=== PATIENT | female | born 1955 | race Caucasian/White ===

== ENCOUNTER 2016-08-11 09:43 | Inpatient (IN) ==
--- NOTE | 2016-08-11 11:24 | Anesthesia Evaluation PreOp ---
Date of Encounter: 08/11/16 Time of Encounter: 11:22 - Past History Planned Operation: cscope Cardiac History: Denies any Significant Hx Pulmonary History: Asthma (very mild) BACK LINE COOK History: Denies Any Significant HX Other Medical History: Thyroid, GERD (controlled) Anesthesia History: No Prior Anesthetic Complications, Past Anesthesia (btl, lap appy, r ctr, r hand) Alcohol Use: none Drug use: none Medications and Allergies Bisoprolol/HCTZ 2.5/6.25 [Ziac 2.5/6.25] 1 tab PO DAILY 02/20/16 [History] Cyanocobalamin (Vitamin B-12) [Vitamin B-12] 1,000 mcg SL DAILY 02/20/16 [ History] Esomeprazole Magnesium [Nexium] 40 mg PO DAILY PRN 02/20/16 [History] LORazepam [Lorazepam] 1 mg PO HS PRN 02/20/16 [History] Levothyroxine [Synthroid] 75 mcg PO 0630 02/20/16 [History] Zolpidem [Ambien] 10 mg PO HS 02/20/16 [History] Sucralfate [Carafate] 1 gm PO BID 04/28/16 [History] Cholecalciferol (D-3) [Vitamin D] 2,000 unit PO DAILY 08/11/16 [History] Allergies No Known Allergies Allergy (Verified 08/11/16 11:18) - Meds/Allergy Pre-op Review Medications Reviewed: Yes Allergies Reviewed: Yes Beta Blockers on Current Med List: Yes If Beta Blockers taken, Date/Time (Last Dose taken): bisoprolol at 1400 on 08/10 Anesthesia Exam O2 Sat Height 1.55 m Height 1.55 m Weight 73.482 kg Weight 73.482 kg O2 Sat by Pulse Oximetry 95 O2 Sat by Pulse Oximetry 95 Vital Signs Temp Pulse Resp BP Pulse Ox 98.2 F 62 16 147/81 95 08/11/16 11:07 08/11/16 11:07 08/11/16 11:07 08/11/16 11:07 08/11/16 11:07 Height: 1.55 Weight: 73 NPO (# of Hours): >8 - HEENT Pupil (Motor): Pupils equal, EOMI Mallampati: I Teeth: Edentulous Denture Type: Upper: Complete, Lower: Complete Oral Opening: Greater than 3 - BACK LINE COOK LOC: Oriented BACK LINE COOK Motor: Normal RUE, Normal LUE, Normal RLE, Normal LLE, Normal Face BACK LINE COOK Sensory: Normal: RUE, LUE, RLE, LLE, Face - Cardiac Rhythm: Regular Murmur: None - Pulmonary Breath Sounds: bilateral Clear Respiratory Effort: Symmetrical Anesthesia Assess/Plan ASA Score: 2 Modified Eveline Scale for Level of Consciousness: Cooperative, oriented, and tranquil Anesthetic Plan: MAC Monitoring Plan: Standard Monitors Recovery Plan: Other
[2016-08-11] MEDS ORDERED: 0.9 % Sodium Chloride 1,000 ML IVC SCH ×2 (11:30)
[2016-08-11] MEDS ORDERED: Ondansetron 4 MG/2 ML VIAL IVP PRN ×2 (12:25→14:15)
[2016-08-11] MEDS ORDERED: Ondansetron 4 MG/2 ML VIAL ONE (12:28)
[2016-08-11] MEDS ORDERED: *HR* Morphine 2 MG/ML SYRINGE IVP ONE (12:34)
[2016-08-11] MEDS ORDERED: *HR* Morphine 2 MG/ML SYRINGE ONE (12:39)
[2016-08-11] MEDS ORDERED: *HR* HYDROmorphone (PF) 1 MG/ML SYRINGE IVP PRN (14:15)
[2016-08-11] MEDS ORDERED: Naloxone 0.4 MG/ML INJ IVP PRN (14:16)
[2016-08-11] MEDS: Piperacillin/Tazobactam 3.375 GM in D5% in Water (Mini-Bag+) 100 ML IVPB SCH ×2 (14:25→17:55)
--- NOTE | 2016-08-11 14:29 | General Surg History&Physical ---
Date of Encounter: 08/11/16 Time of Encounter: 14:00 Assessment and Plan (1) Perforation of colon Current Visit: Yes Status: Acute The assessment and plan as outlined above was discussed with the patient and/or family members who expressed understanding and agreement. All questions were answered. Discussed CT findings with Dr. Vieyra and Dr. Abbott Plan for conservative therapy at this time including: Bowel rest IV antibiotics- first dose infusing (Zosyn) IV fluids Supportive care/pain control Serial abdominal exams am labs (2) Hypertension Current Visit: Yes Status: Chronic The assessment and plan as outlined above was discussed with the patient and/or family members who expressed understanding and agreement. All questions were answered. Will order Metoprolol IV Monitor and adjust regimen as necessary Qualifiers: Hypertension type: essential hypertension Qualified Code(s): I10 - Essential (primary) hypertension (3) Hypothyroidism Current Visit: Yes Status: Chronic The assessment and plan as outlined above was discussed with the patient and/or family members who expressed understanding and agreement. All questions were answered. Levothyroxine IV Qualifiers: Hypothyroidism type: unspecified Qualified Code(s): E03.9 - Hypothyroidism , unspecified (4) DVT prophylaxis Current Visit: Yes Status: Acute The assessment and plan as outlined above was discussed with the patient and/or family members who expressed understanding and agreement. All questions were answered. Heparin 5,000 units SQ twice daily for DVT prophylaxis History of Present Illness Chief complaint: Intra-abdominal free air after colonoscopy HPI: Ms. Marcus is a 61 year old female who is s/p colonoscopy today with Dr. Abbott. She had persistent abdominal pain and bloating after her scope. KUB showed evidence of intra-abdominal free air. She was sent for CT of abdominan/pelvis with rectal contrast. CT shows evidence of extravasation of contrast in the distal sigmoid colon with a 2mm defect. The patient is lethargic due to sedation in endoscopy. She does complain of generalized abdominal pain and bloating. Also complaints of nausea. Past Med Surg Social Fam HX - Past Medical History Source: old records reviewed Medical history: arthritis, asthma, GERD, hypertension, thyroid disease, other ( irregular heartbeat) Psychiatric history: anxiety - Past Surgical History Surgical History: appendectomy, orthopedic, other (2 ruptured discs removed and plat placed; right CTR; right hand ring and middle figer for trigger finger), other (tubal ligation; EGD 2015; Colonoscopy 08/11/16) - Social History Smoking Status: Never smoker Smokeless Tobacco Status: No Alcohol use: none Drug use: none Current living situation: Home - Independent Activity Level: Independent ambulation - Family History Brother Living Status: Still Living Hx Family Cancer: Yes (prostate) Hx Family Endocrine Disorder: Yes (diabetes mellitus) Mother Living Status: Hx Family Cardiac Disorders: Yes Hx Family Endocrine Disorder: Yes (diabetes mellitus) Father Living Status: Hx Family Neurologic Disorders: Yes (CVA) Sister Living Status: Hx Family Cardiac Disorders: Yes (HTN, heart disease) Hx Family Cancer: Yes (uterine cancer) Hx Family Endocrine Disorder: Yes (diabetes mellitus) Hx Family Neurologic Disorders: Yes (CVA) Medications and Allergies Bisoprolol/HCTZ 2.5/6.25 [Ziac 2.5/6.25] 1 tab PO DAILY 02/20/16 [History] Cyanocobalamin (Vitamin B-12) [Vitamin B-12] 1,000 mcg SL DAILY 02/20/16 [ History] Esomeprazole Magnesium [Nexium] 40 mg PO DAILY PRN 02/20/16 [History] LORazepam [Lorazepam] 1 mg PO TID PRN 02/20/16 [History] Cholecalciferol (D-3) [Vitamin D] 2,000 unit PO DAILY 08/11/16 [History] Escitalopram [Lexapro] 20 mg PO DAILY 08/11/16 [History] Levothyroxine [Synthroid] 25 mcg PO 0630 08/11/16 [History] Zolpidem Tartrate [Ambien Cr] 12.5 mg PO HS 08/11/16 [History] Allergies No Known Allergies Allergy (Verified 08/11/16 11:18) Review of Systems ROS unobtainable: other (patient lethargic from anesthesia given for colonoscopy ) All systems PM: A 10-system review of systems was performed and is negative for pertinent findings except as documented above in the HPI. General Surgery Exam Initial Vital Signs Temp Pulse Resp BP Pulse Ox 98.2 F 62 16 147/81 95 08/11/16 11:07 08/11/16 11:07 08/11/16 11:07 08/11/16 11:07 08/11/16 11:07 - General physical appearance well developed, well nourished, moderate distress, moderate pain - Eyes normal ocular movement - ENT normal mucosa, atraumatic, normocephalic - Neck trachea midline - Respiratory normal respiratory effort, clear to auscultation, other (diminished bibasilar bases) - Cardiovascular Cardiovascular exam: Present: RRR, 15, 16 - Abdomen Abdomen general surgery: Present: soft, distended, tender Abdominal Tenderness: Present: diffusely - Integumentary Integumentary general surgery: Present: warm and dry - Neurologic Present: CN 2-12 grossly intact - Psychiatric Psychiatric general surgery: Present: oriented to person, oriented to place Results - Labs All other labs normal. - Imaging CT scan - abdomen: report reviewed CT scan - pelvis: report reviewed (Reviewed with radiologist) Additional studies: Abdomen/Pelvis CT 08/11/16 00:00 IMPRESSION: In the distal sigmoid colon along the anterior wall approximately 15 cm to the level of the anus there is a 2 mm diameter full-thickness perforation. Free intraperitoneal air and spill of rectal contrast. No significant hematoma. Results were discussed with Dr. Abbott on 08/11/2016 at 2:14 p.m. D/ / David Vieyra MD / David Vieyra MD Interpreting Provider: David Vieyra MD KUB X-Ray 08/11/16 13:05 IMPRESSION: Moderate pneumoperitoneum. Dr. Abbott was already aware of the results at the time of communication by Dr. Heather Mcneil MD on 08/11/2016 at 13:16. D/ / Heather Mcneil MD / Heather Mcneil MD Interpreting Provider: Heather Mcneil MD - Attending Attestation I examined this patient and my medical decision-making was reviewed with the BEAUTY SCHOOL INSTRUCTOR/PA/Advanced Practice Nurse/Resident Physician. I agree with the documented findings, disposition and treatment plan as described except to the extent set forth below.
[2016-08-11] MEDS: Acetaminophen IV 1,000 MG/100 ML INFUS..BTL IVPB SCH ×2 (14:58→21:28)
[2016-08-11] MEDS ORDERED: *HR* HYDROmorphone 20 MG/20 ML PCA IVC PRN (15:19)
[2016-08-11] MEDS: *HR* Heparin 5,000 UNIT/ML VIAL SQ SCH (17:52)
[2016-08-11] MEDS: *HR* Metoprolol 5 MG/5 ML VIAL IVP SCH (17:52)
[2016-08-12] MEDS: *HR* Metoprolol 5 MG/5 ML VIAL IVP SCH ×4 (00:10→18:18)
[2016-08-12] MEDS: Piperacillin/Tazobactam 3.375 GM in D5% in Water (Mini-Bag+) 100 ML IVPB SCH ×3 (00:10→16:45)
[2016-08-12] MEDS: 0.9 % Sodium Chloride 1,000 ML IVC SCH ×3 (00:21→20:07)
[2016-08-12] MEDS: Acetaminophen IV 1,000 MG/100 ML INFUS..BTL IVPB SCH ×4 (02:42→20:08)
[2016-08-12 05:23] LABS: Hematocrit 38.8 % (35.3-44.9); Mean Corpuscular HGB Conc 30.9 g/dL (31.6-35.5); Mean Corpuscular Hemoglobin 27.6 pg (28.0-33.3); Mean Corpuscular Volume 89.2 fL (83.0-100.0); Mean Platelet Volume 11.6 fL (9.4-12.4); Platelet Count 235 K/mcL (140-400); Red Blood Count 4.35 M/mcL (3.82-4.97); Red Cell Distribution Width 14.7 % (11.5-14.5)
[2016-08-12 05:37] LABS: BUN/Creatinine Ratio 18 (6-26); Blood Urea Nitrogen 17 mg/dL (7-20); Calcium 8.6 mg/dL (8.6-10.8); Carbon Dioxide 23 mEq/L (19-29); Chloride 107 mEq/L (98-109); Glucose 118 mg/dL (70-99); Osmolality,Calculated 293 (280-300); Potassium 4.4 mEq/L (3.5-4.5); Sodium 140 mEq/L (136-145); eGFR For African Americans > 60 (> 60); eGFR For Non-African Americans > 60 (> 60)
[2016-08-12 06:32] LABS: Large Platelets Present (Not Present); Lymphocytes # 1.4 K/mcL (0.6-4.6); Monocytes # 0.8 K/mcL (0.0-1.3); Neutrophils # 11.3 K/mcL (1.6-8.9); Platelet Estimate Normal (Normal)
[2016-08-12] MEDS: Levothyroxine Sodium 100 MCG VIAL IVP SCH (06:40)
[2016-08-12] MEDS: *HR* Heparin 5,000 UNIT/ML VIAL SQ SCH ×2 (06:41→18:43)
--- NOTE | 2016-08-12 07:33 | General Surgery Progress Note ---
Date of Encounter: 08/12/16 Time of Encounter: 07:20 - Assessment and Plan (1) Perforation of colon Current Visit: Yes Status: Acute Continue conservative therapy. Bowel rest IV antibiotics- first dose infusing (Zosyn) IV fluids Supportive care/pain control Serial abdominal exams am labs (2) Hypertension Current Visit: Yes Status: Chronic Slightly hypotensive at this time. Continue to monitor. Metoprolol with holding parameters of SBP less than 100 and/or HR less than 60 Qualifiers: Hypertension type: essential hypertension Qualified Code(s): I10 - Essential (primary) hypertension (3) Hypothyroidism Current Visit: Yes Status: Chronic Levothyroxine IV Qualifiers: Hypothyroidism type: unspecified Qualified Code(s): E03.9 - Hypothyroidism , unspecified (4) DVT prophylaxis Current Visit: Yes Status: Acute Heparin 5,000 units SQ twice daily for DVT prophylaxis Subjective Patient reports: no new complaints, still having pain, no flatus, no bowel movement, nausea, afebrile Narrative: The patient states she is still unable to pass gas despite positional changes recommended to her after colonoscopy. She states her pain is slightly worse, but her nausea has improved. She denies having an appetite, but states her mouth is dry. Objective Vital Signs - Last 8 Hours Temp Pulse Resp BP Pulse Ox 08/12/16 06:40 98.2 F 63 16 90/61 96 08/12/16 03:42 98.4 F 62 16 93/63 96 08/11/16 23:45 99.0 F 78 16 104/69 96 Intake and Output 08/11/16 08/11/16 08/12/16 15:59 23:59 07:59 Intake Total 100 / 100 200 / 200 200 / 200 Output Total 0 / 0 250 / 250 150 / 150 Balance 100 / 100 -50 / -50 50 / 50 Intake: IV Fluids 100 / 100 200 / 200 200 / 200 Ofirmev 1,000 mg In 100 100 / 100 100 / 100 100 / 100 ml @ 400 mls/hr IVPB Q6H [facility] Rx#:[id number] Zosyn 3.375 GM In 100 / 100 100 / 100 Dextrose 5% (Minibag+) 100 ML 100 ML @ 25 mls/hr IVPB Q8HR [facility] Rx#: [id number] Oral 0 / 0 0 / 0 Output: Urine 0 / 0 250 / 250 150 / 150 Other: Meal NPO Weight 73.482 kg 75.807 kg Blood Glucose* 101 111 Patient Weight 08/12/16 23:59 Weight 75.807 kg - General physical appearance well developed, well nourished, no distress - Eyes normal ocular movement - ENT dry mucosa, atraumatic, normocephalic - Neck Neck exam: trachea midline - Respiratory normal respiratory effort, clear to auscultation - Cardiovascular Cardiovascular exam: Present: RRR - Abdomen Abdomen: Present: bowel sounds present, soft, tender (diffusely), rebound - Integumentary no rash - Neurologic CN 2-12 grossly intact - Musculoskeletal normal posture - Psychiatric oriented to time, oriented to person, oriented to place, speech is normal, memory intact - Labs 08/13/16 06:58 08/12/16 04:54 Diabetes panel 08/12/16 Range/Units 04:54 Sodium 140 (136-145) mEq/L Potassium 4.4 (3.5-4.5) mEq/L Chloride 107 (98-109) mEq/L Carbon Dioxide 23 (19-29) mEq/L BUN 17 (7-20) mg/dL Creatinine 0.93 (0.57-1.11) mg/dL Glucose 118 H (70-99) mg/dL Calcium 8.6 (8.6-10.8) mg/dL Calcium panel 08/12/16 Range/Units 04:54 Calcium 8.6 (8.6-10.8) mg/dL Pituitary panel 08/12/16 Range/Units 04:54 Sodium 140 (136-145) mEq/L Potassium 4.4 (3.5-4.5) mEq/L Chloride 107 (98-109) mEq/L Carbon Dioxide 23 (19-29) mEq/L BUN 17 (7-20) mg/dL Creatinine 0.93 (0.57-1.11) mg/dL Glucose 118 H (70-99) mg/dL Calcium 8.6 (8.6-10.8) mg/dL Adrenal panel 08/12/16 Range/Units 04:54 Sodium 140 (136-145) mEq/L Potassium 4.4 (3.5-4.5) mEq/L Chloride 107 (98-109) mEq/L Carbon Dioxide 23 (19-29) mEq/L BUN 17 (7-20) mg/dL Creatinine 0.93 (0.57-1.11) mg/dL Glucose 118 H (70-99) mg/dL Calcium 8.6 (8.6-10.8) mg/dL Consult Discharge Plan - Plan Referrals: Norm Padilla DO [Primary Care Provider] - - Attending Attestation I examined this patient and my medical decision-making was reviewed with the WORKERS COMPENSATION CLAIMS ASSISTANT/PA/Advanced Practice Nurse/Resident Physician. I agree with the documented findings, disposition and treatment plan as described except to the extent set forth below.
[2016-08-12] MEDS: Pantoprazole 40 MG VIAL IVP SCH (09:35)
[2016-08-12] MEDS ORDERED: *HR* LORazepam 2 MG/ML VIAL IVP PRN (18:53)
[2016-08-13] MEDS: *HR* Metoprolol 5 MG/5 ML VIAL IVP SCH ×4 (00:23→23:26)
[2016-08-13] MEDS: Piperacillin/Tazobactam 3.375 GM in D5% in Water (Mini-Bag+) 100 ML IVPB SCH ×3 (00:24→23:27)
[2016-08-13] MEDS: Acetaminophen IV 1,000 MG/100 ML INFUS..BTL IVPB SCH ×3 (03:46→18:16)
[2016-08-13] MEDS: *HR* Heparin 5,000 UNIT/ML VIAL SQ SCH ×3 (06:00→20:00)
[2016-08-13] MEDS: Levothyroxine Sodium 100 MCG VIAL IVP SCH (06:04)
[2016-08-13] MEDS: 0.9 % Sodium Chloride 1,000 ML IVC SCH ×2 (06:15→20:50)
[2016-08-13 07:11] LABS: Basophils % 0.2 %; Eosinophils # 0.1 K/mcL (0.0-0.6); Eosinophils % 0.5 %; Immature Granulocytes % 1.7 % (0-4); Lymphocytes # 1.5 K/mcL (0.6-4.6); Lymphocytes % 11.2 %; Mean Corpuscular HGB Conc 31.6 g/dL (31.6-35.5); Mean Corpuscular Hemoglobin 27.6 pg (28.0-33.3); Mean Corpuscular Volume 87.3 fL (83.0-100.0); Mean Platelet Volume 12.1 fL (9.4-12.4); Monocytes # 0.4 K/mcL (0.0-1.3); Monocytes % 2.7 %; Platelet Count 198 K/mcL (140-400); Red Blood Count 3.55 M/mcL (3.82-4.97); Segmented Neutrophils % 83.7 %
[2016-08-13 07:13] LABS: Hemoglobin 9.8 g/dL (11.5-15.4)
[2016-08-13] MEDS: Pantoprazole 40 MG VIAL IVP SCH (08:16)
[2016-08-13] MEDS ORDERED: *HR* Rocuronium Bromide 50 MG/5 ML VIAL ONE (14:30)
[2016-08-13] MEDS ORDERED: *HR* Midazolam HCl 2 MG/2 ML VIAL ONE (14:30)
[2016-08-13] MEDS ORDERED: *HR* FentaNYL (PF) 100 MCG/2 ML VIAL ONE (14:30)
[2016-08-13] MEDS ORDERED: *HR* Propofol 200 MG/20 ML VIAL IVP ONE (14:30)
[2016-08-13] MEDS ORDERED: Ondansetron 4 MG/2 ML VIAL ONE (14:30)
[2016-08-13] MEDS ORDERED: Lidocaine -MPF 2% 2 ML VIAL ONE (14:31)
--- NOTE | 2016-08-13 14:43 | Anesthesia Evaluation PreOp ---
Date of Encounter: 08/13/16 Time of Encounter: 14:41 - Past History Planned Operation: dx laparoscopy Cardiac History: Denies any Significant Hx Pulmonary History: Asthma (mild) INTERN PRODUCT MARKETING MANAGER History: Denies Any Significant HX Other Medical History: Thyroid, GERD Anesthesia History: No Prior Anesthetic Complications, Past Anesthesia (cscope, btl, appy, right hand, rctr) Alcohol Use: none Drug use: none Medications and Allergies Bisoprolol/HCTZ 2.5/6.25 [Ziac 2.5/6.25] 1 tab PO DAILY 02/20/16 [History] Cyanocobalamin (Vitamin B-12) [Vitamin B-12] 1,000 mcg SL DAILY 02/20/16 [ History] Esomeprazole Magnesium [Nexium] 40 mg PO DAILY PRN 02/20/16 [History] LORazepam [Lorazepam] 1 mg PO TID PRN 02/20/16 [History] Cholecalciferol (D-3) [Vitamin D] 2,000 unit PO DAILY 08/11/16 [History] Escitalopram [Lexapro] 20 mg PO DAILY 08/11/16 [History] Levothyroxine [Synthroid] 25 mcg PO 0630 08/11/16 [History] Zolpidem Tartrate [Ambien Cr] 12.5 mg PO HS 08/11/16 [History] Allergies No Known Allergies Allergy (Verified 08/11/16 11:18) - Meds/Allergy Pre-op Review Medications Reviewed: Yes Allergies Reviewed: Yes Beta Blockers on Current Med List: Yes If Beta Blockers taken, Date/Time (Last Dose taken): bisoprolol at 11:46 Anesthesia Results - Labs 08/13/16 06:58 08/12/16 04:54 Anesthesia Exam O2 Sat O2 Sat by Pulse Oximetry 92 O2 Sat by Pulse Oximetry 99 O2 Sat by Pulse Oximetry 97 O2 Sat by Pulse Oximetry 93 O2 Sat by Pulse Oximetry 94 O2 Sat by Pulse Oximetry 96 Vital Signs Temp Pulse Resp BP Pulse Ox 98.2 F 62 16 147/81 95 08/11/16 11:07 08/11/16 11:07 08/11/16 11:07 08/11/16 11:07 08/11/16 11:07 Height: 1.55 Weight: 76 NPO (# of Hours): >8 - HEENT Pupil (Motor): Pupils equal, EOMI Mallampati: I Teeth: Edentulous Oral Opening: Greater than 3 - INTERN PRODUCT MARKETING MANAGER LOC: Oriented INTERN PRODUCT MARKETING MANAGER Motor: Normal RUE, Normal LUE, Normal RLE, Normal LLE, Normal Face INTERN PRODUCT MARKETING MANAGER Sensory: Normal: RUE, LUE, RLE, LLE, Face - Cardiac Rhythm: Regular Murmur: None - Pulmonary Breath Sounds: bilateral Clear Respiratory Effort: Symmetrical Anesthesia Assess/Plan ASA Score: 2 Modified Downey Scale for Level of Consciousness: Cooperative, oriented, and tranquil Anesthetic Plan: General Monitoring Plan: Standard Monitors Recovery Plan: PACU
[2016-08-13] MEDS ORDERED: *HR* HYDROmorphone (PF) 1 MG/ML SYRINGE IVP PRN (16:41)
[2016-08-13] MEDS ORDERED: Albuterol 2.5 MG/3 ML NEBULIZER IH PRN (16:41)
[2016-08-13] MEDS ORDERED: *HR* Promethazine 25 MG/ML VIAL IVP PRN (16:41)
[2016-08-13] MEDS ORDERED: Neostigmine Methylsulfate 3 MG/3 ML SYRINGE ONE (17:08)
--- NOTE | 2016-08-13 17:10 | Operative Note ---
Date of procedure: 08/13/16 Pre-op diagnosis: Free intra-abdominal air Post-op diagnosis: same Procedure: Robotic closure of colotomy Anesthesia: DAVIE Surgeon: Fernando Abbott Estimated blood loss (cc): 5 Condition: stable Disposition: same day Procedure in Detail: After informed consent, the patient was taken to the operating room placed in the supine position. After adequate sedation and anesthesia the abdomen was prepped and draped. A 12 mm cannula site was placed just right lateral knee umbilicus. Once inside the abdomen and pneumoperitoneum was created. There was some bloody fluid identified in the cul-de-sac. There is some induration and exudate in the pelvis. 2 other 8 mm cannulas were placed and a 5 mm cannula was placed as well. I was able to evaluate the rectosigmoid colon. There was a rent identified in the antimesenteric border. There were 2 individual 2-0 silk sutures that had been placed in the abdomen. The colotomy was closed and running fashion with 2-0 silk suture. Once completed the area was irrigated and suctioned dry and 19-Slovak Darci drain was placed in the cul- de-sac as well. Vision tolerated the procedure well. She was taken to recovery in stable condition.
--- NOTE | 2016-08-13 17:54 | Anesthesia Evaluation Post Op ---
Date of Encounter: 08/13/16 Time of Encounter: 17:54 - Vital Signs Vital Signs: vss - Lungs Lungs: Clear Ascult./Percussion - Airway Airway: Non-obstructed - Cardiovascular Baseline Rhythm - Mental Status Mental Status: Asleep with brisk response to light stimulation - Pain Pain Scale used: Rosemarie (Faces) (tolerable) - Nausea Vomiting Nausea Vomiting: Not Present - Discharge PostOp Status: Transfer Patient to floor
[2016-08-13] MEDS ORDERED: Ondansetron 4 MG/2 ML VIAL IVP PRN ×2 (18:07)
[2016-08-13] MEDS ORDERED: Naloxone 0.4 MG/ML INJ IVP PRN (18:07)
[2016-08-13] MEDS ORDERED: *HR* HYDROmorphone 20 MG/20 ML PCA IVC PRN (18:07)
[2016-08-13] MEDS: *HR* LORazepam 2 MG/ML VIAL IVP PRN (23:25)
[2016-08-14] MEDS: *HR* Metoprolol 5 MG/5 ML VIAL IVP SCH ×3 (06:27→18:36)
[2016-08-14] MEDS: Levothyroxine Sodium 100 MCG VIAL IVP SCH (06:27)
[2016-08-14] MEDS: 0.9 % Sodium Chloride 1,000 ML IVC SCH (06:27)
[2016-08-14] MEDS: *HR* Heparin 5,000 UNIT/ML VIAL SQ SCH ×3 (06:28→21:33)
[2016-08-14 08:00] LABS: Basophils % 0.2 %; Eosinophils # 0.1 K/mcL (0.0-0.6); Eosinophils % 0.4 %; Hematocrit 32.1 % (35.3-44.9); Immature Granulocytes % 1.7 % (0-4); Lymphocytes # 1.5 K/mcL (0.6-4.6); Lymphocytes % 12.1 %; Mean Corpuscular HGB Conc 31.2 g/dL (31.6-35.5); Mean Corpuscular Hemoglobin 27.1 pg (28.0-33.3); Mean Platelet Volume 11.5 fL (9.4-12.4); Monocytes # 0.7 K/mcL (0.0-1.3); Monocytes % 5.3 %; Neutrophils # 9.9 K/mcL (1.6-8.9); Platelet Count 196 K/mcL (140-400); Red Blood Count 3.69 M/mcL (3.82-4.97); Red Cell Distribution Width 15.1 % (11.5-14.5); Segmented Neutrophils % 80.3 %
[2016-08-14 08:12] LABS: BUN/Creatinine Ratio 19 (6-26); Blood Urea Nitrogen 13 mg/dL (7-20); Calcium 7.8 mg/dL (8.6-10.8); Carbon Dioxide 20 mEq/L (19-29); Chloride 111 mEq/L (98-109); Glucose 75 mg/dL (70-99); Osmolality,Calculated 287 (280-300); Potassium 3.6 mEq/L (3.5-4.5); Sodium 139 mEq/L (136-145); eGFR For African Americans > 60 (> 60); eGFR For Non-African Americans > 60 (> 60)
[2016-08-14] MEDS: Pantoprazole 40 MG VIAL IVP SCH (08:50)
[2016-08-14] MEDS: Piperacillin/Tazobactam 3.375 GM in D5% in Water (Mini-Bag+) 100 ML IVPB SCH ×2 (08:51→16:58)
--- NOTE | 2016-08-14 09:54 | General Surgery Progress Note ---
Date of Encounter: 08/14/16 Time of Encounter: 09:20 - Assessment and Plan (1) Perforation of colon Current Visit: Yes Status: Acute Post op Day #1 status post robotic closure of colotomy. Clear liquid diet IV antibiotics Zosyn Continue IV fluids Continue nausea control Continue pain control GI prophylaxis DVT prophylaxis (2) Hypertension Current Visit: Yes Status: Chronic Normotensive at this time. Continue to monitor. Metoprolol with holding parameters of SBP less than 100 and/or HR less than 60 Qualifiers: Hypertension type: essential hypertension Qualified Code(s): I10 - Essential (primary) hypertension (3) Hypothyroidism Current Visit: Yes Status: Chronic Levothyroxine IV Qualifiers: Hypothyroidism type: unspecified Qualified Code(s): E03.9 - Hypothyroidism , unspecified (4) DVT prophylaxis Current Visit: Yes Status: Acute Heparin 5,000 units SQ twice daily for DVT prophylaxis Subjective Patient reports: no new complaints, feels better, pain is less, tolerating liquids well, voiding w/o difficulty, no flatus, no bowel movement, afebrile Narrative: The patient states she feels much better than what she did yesterday. She has some soreness associated around her surgical site. She denies nausea or vomiting and states she is tolerating a clear liquid diet well. Objective Vital Signs - Last 8 Hours Temp Pulse Resp BP Pulse Ox 08/14/16 05:02 98.2 F 86 16 115/81 97 Intake and Output 08/13/16 08/14/16 08/14/16 23:59 07:59 15:59 Intake Total 583 / 583 1100 / 1100 240 / 240 Output Total 120 / 120 320 / 320 Balance 463 / 463 780 / 780 240 / 240 Intake: IV Fluids 583 / 583 1100 / 1100 0.9 % Sodium Chloride 1, 583 / 583 1000 / 1000 000 ML @ 100 mls/hr IVC . Q10H [facility] Rx#:[id number] Zosyn 3.375 GM In 100 / 100 Dextrose 5% (Minibag+) 100 ML 100 ML @ 25 mls/hr IVPB Q8HR [facility] Rx#: [id number] Oral 0 / 0 240 / 240 Output: Urine 250 / 250 Wound Drainage 120 / 120 70 / 70 Upper Abdomen 80 / 80 70 / 70 Other: Meal NPO Breakfast Weight 80.1 kg Blood Glucose* 79 Patient Weight 08/14/16 23:59 Weight 80.1 kg - General physical appearance well developed, well nourished, no distress - Eyes normal ocular movement - ENT normal mucosa - Neck Neck exam: trachea midline - Respiratory normal respiratory effort, clear to auscultation - Cardiovascular Cardiovascular exam: Present: RRR - Abdomen Abdomen: Present: bowel sounds present, soft, tender (expected postoperative tenderness), wound (MARIANA drain in place with serosanguineous drainage 70ml since midnight) - Incision Incision: Present: clean and dry, intact - Integumentary no rash - Neurologic CN 2-12 grossly intact - Musculoskeletal normal posture - Psychiatric oriented to time, oriented to person, oriented to place, speech is normal, memory intact - Labs 08/14/16 07:48 08/14/16 07:48 Diabetes panel 08/14/16 Range/Units 07:48 Sodium 139 (136-145) mEq/L Potassium 3.6 (3.5-4.5) mEq/L Chloride 111 H (98-109) mEq/L Carbon Dioxide 20 (19-29) mEq/L BUN 13 (7-20) mg/dL Creatinine 0.67 (0.57-1.11) mg/dL Glucose 75 (70-99) mg/dL Calcium 7.8 L (8.6-10.8) mg/dL Calcium panel 08/14/16 Range/Units 07:48 Calcium 7.8 L (8.6-10.8) mg/dL Pituitary panel 08/14/16 Range/Units 07:48 Sodium 139 (136-145) mEq/L Potassium 3.6 (3.5-4.5) mEq/L Chloride 111 H (98-109) mEq/L Carbon Dioxide 20 (19-29) mEq/L BUN 13 (7-20) mg/dL Creatinine 0.67 (0.57-1.11) mg/dL Glucose 75 (70-99) mg/dL Calcium 7.8 L (8.6-10.8) mg/dL Adrenal panel 08/14/16 Range/Units 07:48 Sodium 139 (136-145) mEq/L Potassium 3.6 (3.5-4.5) mEq/L Chloride 111 H (98-109) mEq/L Carbon Dioxide 20 (19-29) mEq/L BUN 13 (7-20) mg/dL Creatinine 0.67 (0.57-1.11) mg/dL Glucose 75 (70-99) mg/dL Calcium 7.8 L (8.6-10.8) mg/dL - VTE Documentation of Mechanical Device: Intermittent pneumatic compression device Consult Discharge Plan - Plan Referrals: Norm Padilla DO [Primary Care Provider] - - Attending Attestation I examined this patient and my medical decision-making was reviewed with the RESEARCH TEST ENGINE OPERATOR/PA/Advanced Practice Nurse/Resident Physician. I agree with the documented findings, disposition and treatment plan as described except to the extent set forth below.
[2016-08-14] MEDS ORDERED: 0.9 % Sodium Chloride 1,000 ML IVC SCH (13:36)
[2016-08-14] MEDS: *HR* LORazepam 2 MG/ML VIAL IVP PRN (21:41)
[2016-08-15] MEDS: Piperacillin/Tazobactam 3.375 GM in D5% in Water (Mini-Bag+) 100 ML IVPB SCH ×2 (00:29→09:03)
[2016-08-15] MEDS: *HR* Metoprolol 5 MG/5 ML VIAL IVP SCH ×2 (00:29→06:36)
[2016-08-15] MEDS: Levothyroxine Sodium 100 MCG VIAL IVP SCH (06:36)
[2016-08-15] MEDS: *HR* Heparin 5,000 UNIT/ML VIAL SQ SCH (06:36)
[2016-08-15 07:15] LABS: Basophils % 0.2 %; Eosinophils # 0.1 K/mcL (0.0-0.6); Eosinophils % 1.3 %; Hematocrit 31.8 % (35.3-44.9); Immature Granulocytes % 0.6 % (0-4); Lymphocytes # 1.8 K/mcL (0.6-4.6); Lymphocytes % 21.8 %; Mean Corpuscular HGB Conc 31.4 g/dL (31.6-35.5); Mean Corpuscular Hemoglobin 27.5 pg (28.0-33.3); Mean Corpuscular Volume 87.6 fL (83.0-100.0); Mean Platelet Volume 11.8 fL (9.4-12.4); Monocytes # 0.7 K/mcL (0.0-1.3); Monocytes % 8.1 %; Neutrophils # 5.5 K/mcL (1.6-8.9); Platelet Count 218 K/mcL (140-400); Red Blood Count 3.63 M/mcL (3.82-4.97); Red Cell Distribution Width 15.1 % (11.5-14.5)
[2016-08-15] MEDS: Pantoprazole 40 MG VIAL IVP SCH (09:03)
[2016-08-15] MEDS ORDERED: *HR* LORazepam 1 MG TABLET PO PRN (09:53)
[2016-08-15] MEDS ORDERED: *HR* OxyCODONE/APAP 5/325 TABLET PO PRN (09:55)
[2016-08-15] MEDS ORDERED: *HR* HYDROmorphone (PF) 1 MG/ML SYRINGE IVP PRN (09:56)
[2016-08-15] MEDS ORDERED: Bisoprolol/HCTZ 2.5/6.25 TABLET PO SCH (10:00)
--- NOTE | 2016-08-15 10:07 | General Surgery Progress Note ---
Date of Encounter: 08/15/16 Time of Encounter: 10:30 - Assessment and Plan (1) Perforation of colon Current Visit: Yes Status: Acute POD #2 Robotic closure of colotomy Advance to full liquids Saline lock IV fluids IV antibiotics- Zosyn Supportive care/pain control- start Percocet Ambulate hallways TID Continue MARIANA drain (2) Hypertension Current Visit: Yes Status: Chronic Home medication regimen restarted today Continue to monitor and adjust as necessary Qualifiers: Hypertension type: essential hypertension Qualified Code(s): I10 - Essential (primary) hypertension (3) Hypothyroidism Current Visit: Yes Status: Chronic Home dose of levothyroxine started today Qualifiers: Hypothyroidism type: unspecified Qualified Code(s): E03.9 - Hypothyroidism , unspecified (4) DVT prophylaxis Current Visit: Yes Status: Acute Heparin 5,000 units SQ twice daily for DVT prophylaxis Subjective Patient reports: no new complaints, feels better, still having pain, pain is less, tolerating liquids well, voiding w/o difficulty, flatus, no bowel movement , afebrile Objective Vital Signs - Last 8 Hours Temp Pulse Resp BP Pulse Ox 08/15/16 07:23 98.8 F 66 16 121/77 93 L 08/15/16 04:15 98.3 F 83 16 145/78 94 L Intake and Output 08/14/16 08/15/16 08/15/16 23:59 07:59 15:59 Intake Total 100 / 100 300 / 300 240 / 240 Output Total 360 / 360 1710 / 1710 10 10 Balance -260 / -260 -1410 / -1410 230 / 230 Intake: IV Fluids 100 / 100 100 / 100 Zosyn 3.375 GM In 100 / 100 100 / 100 Dextrose 5% (Minibag+) 100 ML 100 ML @ 25 mls/hr IVPB Q8HR [facility] Rx#: [id number] Oral 0 / 0 200 / 200 240 / 240 Output: Urine 300 / 300 1650 / 1650 Wound Drainage 60 / 60 60 / 60 10 / 10 Upper Abdomen 60 / 60 60 / 60 10 / 10 Other: Meal Breakfast Weight 80.059 kg Patient Weight 08/15/16 23:59 Weight 80.059 kg - General physical appearance well developed, well nourished, no distress - Eyes normal ocular movement - ENT normal mucosa, atraumatic, normocephalic - Neck Neck exam: trachea midline - Respiratory normal respiratory effort, clear to auscultation - Cardiovascular Cardiovascular exam: Present: RRR - Abdomen Abdomen: Present: bowel sounds present, soft, tender (expected tenderness), wound (MARIANA drain to bulb suction with serous drainage noted (70ml since midnight) ) - Integumentary no rash, no growths, no abnormal pigmentation - Neurologic CN 2-12 grossly intact - Psychiatric oriented to time, oriented to person, oriented to place, speech is normal, memory intact - Labs 08/15/16 05:59 08/14/16 07:48 - VTE Documentation of Mechanical Device: Intermittent pneumatic compression device Consult Discharge Plan - Plan Referrals: Norm Padilla DO [Primary Care Provider] - - Attending Attestation I examined this patient and my medical decision-making was reviewed with the HEALTH CARE COACH/PA/Advanced Practice Nurse/Resident Physician. I agree with the documented findings, disposition and treatment plan as described except to the extent set forth below.
--- NOTE | 2016-08-15 14:30 | Discharge Summary ---
Date of Encounter: 08/15/16 Time of Encounter: 14:28 - Discharge Diagnosis (1) Perforation of colon Priority: Primary Status: Resolved (2) Hypertension Priority: Secondary Status: Chronic Qualifiers: Hypertension type: essential hypertension Qualified Code(s): I10 - Essential (primary) hypertension (3) Hypothyroidism Priority: Secondary Status: Chronic Qualifiers: Hypothyroidism type: unspecified Qualified Code(s): E03.9 - Hypothyroidism , unspecified (4) DVT prophylaxis Priority: Secondary Status: Acute - Discharge Medications Prescriptions: OxyCODONE/APAP 5/325 [Percocet 5/325 MG] 1 each PO Q4HR PRN #30 tablet PRN Reason: Pain Ondansetron ODT [Zofran ODT] 4 mg SL Q6HR PRN #30 tab.rapdis PRN Reason: Nausea Amoxicillin/Clavulanate [Augmentin] 875 mg PO BIDWM #14 tablet Home Medications: Bisoprolol/HCTZ 2.5/6.25 [Ziac 2.5/6.25] 1 tab PO DAILY 02/20/16 [History] Cyanocobalamin (Vitamin B-12) [Vitamin B-12] 1,000 mcg SL DAILY 02/20/16 [ History] Esomeprazole Magnesium [Nexium] 40 mg PO DAILY PRN 02/20/16 [History] LORazepam [Lorazepam] 1 mg PO TID PRN 02/20/16 [History] Cholecalciferol (D-3) [Vitamin D] 2,000 unit PO DAILY 08/11/16 [History] Escitalopram [Lexapro] 20 mg PO DAILY 08/11/16 [History] Levothyroxine [Synthroid] 25 mcg PO 0630 08/11/16 [History] Zolpidem Tartrate [Ambien Cr] 12.5 mg PO HS 08/11/16 [History] Amoxicillin/Clavulanate [Augmentin] 875 mg PO BIDWM #14 tablet 08/15/16 [Rx] Ondansetron ODT [Zofran ODT] 4 mg SL Q6HR PRN #30 tab.rapdis 08/15/16 [Rx] OxyCODONE/APAP 5/325 [Percocet 5/325 MG] 1 each PO Q4HR PRN #30 tablet 08/15/16 [Rx] Allergies/Adverse Reactions: Allergies No Known Allergies Allergy (Verified 08/11/16 11:18) General Surgery Exam Initial Vital Signs Temp Pulse Resp BP Pulse Ox 98.2 F 62 16 147/81 95 08/11/16 11:07 08/11/16 11:07 08/11/16 11:07 08/11/16 11:07 08/11/16 11:07 - General physical appearance well developed, well nourished, no distress - Eyes normal ocular movement - ENT normal mucosa, atraumatic, normocephalic - Neck trachea midline - Respiratory normal respiratory effort, clear to auscultation - Cardiovascular Cardiovascular exam: Present: RRR, 15, 16 - Abdomen Abdomen general surgery: Present: bowel sounds present, soft, tender (expected post-operative tenderness), wound (MARIANA drain with serous drainage noted) - Incision Incision: Present: clean and dry, intact - Integumentary Integumentary general surgery: Present: warm and dry - Neurologic Present: CN 2-12 grossly intact - Psychiatric Psychiatric general surgery: Present: A&Ox3 Date of admission: 08/12/16 17:03 Primary care physician: Norm Padilla DO Consults: 08/11/16 16:24 Consult to Pastoral Services [CONS] Stat Comment: Discharging clinician: Fernando Abbott ([facility]) Anticipated date of discharge: 08/15/16 - Patient Status Disposition: Home, Self-Care Condition: Good Functional capacity at discharge: independent ambulation Overall status at discharge: patient is progressing back to baseline - Discharge Instructions Follow Up With: Norm Padilla DO [Primary Care Provider] - Fernando Abbott DO [Partnered Physician] - 08/26/16 2:50 pm (surgery follow-up) Additional Instructions: Discharge instructions: #1 May shower, no tub bath X 2 weeks #2 Cleanse incisions with soap and water and pat dry daily #3 MARIANA drain- cleanse around drain with soap and water and pat dry daily, empty drain 2 times daily and as needed if full. Record drainage and bring to follow-up appointment on 08/26/[address] Abbott. #4 No lifting/pushing/pulling greater than 15 lb. for a total of 4 weeks from the date of surgery #5 No driving until off narcotics and able to react safely in the car #6 May climb stairs - Diet and Activity Activity: other (See additional instructions above) Diet: advance to your usual diet - Hospital Course Hospital course: Ms. Marcus is a 61 year old female who experienced a colon perforation after undergoing a colonoscopy. She had a CT scan which showed a 2mm defect and we did attempt to treat her conservatively with bowel rest, IV fluids and IV antibiotics. The patient failed this therapy. She was taken to the operating room on 08/13/16 for repair of a colotomy with Dr. Abbott. She has progressed very well after the repair. She is tolerating a full liquid diet. Her pain is significantly improving. Vitals are stable and she is afebrile. Her WBC is has normalized. We will begin discharge planning and plan for outpatient follow-up in the next 7-10 days. - Time Spent with Patient Total time spent providing and/or coordinating discharge services: Less than 30 minutes Labs on day of discharge: Labs from last 24 hours 08/15/16 05:59 WBC 8.2 RBC 3.63 L Hgb 10.0 L Hct 31.8 L MCV 87.6 MCH 27.5 L MCHC 31.4 L RDW 15.1 H Plt Count 218 MPV 11.8 Immature Gran % 0.6 Seg Neutrophils % 68.0 Lymphocytes % 21.8 Monocytes % 8.1 Eosinophils % 1.3 Basophils % 0.2 Neutrophils # 5.5 Lymphocytes # 1.8 Monocytes # 0.7 Eosinophils # 0.1 Basophils # 0.0 - Impressions ITS Impressions Abdomen/Pelvis CT 08/11/16 00:00 IMPRESSION: In the distal sigmoid colon along the anterior wall approximately 15 cm to the level of the anus there is a 2 mm diameter full-thickness perforation. Free intraperitoneal air and spill of rectal contrast. No significant hematoma. Results were discussed with Dr. Abbott on 08/11/2016 at 2:14 p.m. D/ / 08/11/2016 14:47:48 David Vieyra MD / chela Interpreting Provider: David Vieyra MD X-Ray 08/11/16 12:31 IMPRESSION: Mild gaseous dilation of the colon with vague areas of lucency in the right upper quadrant. Recommend further evaluation with dedicated upright or decubitus KUB for evaluation of free air. D/ / Heather Mcneil MD / Heather Mcneil MD Interpreting Provider: Heather Mcneil MD X-Ray 08/11/16 13:05 IMPRESSION: Moderate pneumoperitoneum. Dr. Abbott was already aware of the results at the time of communication by Dr. Heather Mcneil MD on 08/11/2016 at 13:16. D/ / Heather Mcneil MD / Heather Mcneil MD Interpreting Provider: Heather Mcneil MD Chest/Abdomen X-ray 08/13/16 08:55 IMPRESSION: 1. Large amount of intraperitoneal free air, primarily beneath the right hemidiaphragm. This appears increased in amount when compared with the prior studies from two days prior. 2. Bibasilar atelectasis. Results of this examination were verbally communicated to the patient's nurse, Rachel Hutton, at 10:12 a.m. on August 13, 2016 by the [facility]. D/ / 08/13/2016 10:04:42 Stefan Lawson MD / regla Interpreting Provider: Stefan Lawson MD - Attending Attestation I examined this patient and my medical decision-making was reviewed with the RESIDENTIAL APPRAISER/PA/Advanced Practice Nurse/Resident Physician. I agree with the documented findings, disposition and treatment plan as described except to the extent set forth below.
[2016-08-15 15:27] VITALS: BP 153/71
[2016-08-16] MEDS ORDERED: Levothyroxine 25 MCG TABLET PO SCH (06:30)
== END 2016-08-15 18:51 | disposition home or self-care (01) | DRG 791 ==
LOC: ENDPAV 09:43 → 3ANU 14:08
PROVIDERS: ADMIT Surgery; ATTEND Surgery

== ENCOUNTER 2016-08-26 21:46 | Inpatient (IN) ==
[2016-08-26] MEDS ORDERED: Acetaminophen 650 MG RECTAL SUPP RC ONE (22:04)
[2016-08-26] MEDS ORDERED: *HR* HYDROmorphone (PF) 1 MG/ML SYRINGE IV ONE (22:04)
--- NOTE | 2016-08-26 22:14 | Emergency Department Note ---
Disposition Clinical Impression: Postoperative intra-abdominal abscess Qualifiers: Encounter type: initial encounter Qualified Code(s): T81.4XXA - Infection following a procedure, initial encounter; K65.1 - Peritoneal abscess Fever Qualifiers: Fever type: unspecified Qualified Code(s): R50.9 - Fever, unspecified Disposition: Admitted As Inpatient Condition: Fair Referrals: NO,PCP [Primary Care Provider] - Forms: ED Satisfaction Letter Time of Disposition: 00:27 Fever HPI - General Chief Complaint: ED Fever Stated Complaint: ed fever, abdominal pain Time Seen by Provider: 08/26/16 21:54 Source: patient, family Mode of arrival: wheelchair Limitations: no limitations Nursing Notes Reviewed: Yes Vital Signs Reviewed: Yes - History of Present Illness HPI Narrative: The patient had a recent hospitalization for a bowel perforation status post colonoscopy. She underwent laparoscopic repair. She has experienced daily afternoon fevers with a MAXIMUM TEMPERATURE of 103 since discharge. She had her Chucho[place]Ell[place] drain removed in the surgeon's office today. She notes a yeast infection but denies other systemic symptoms including such as sore throat , upper respiratory symptoms, cough, dysuria. She does complain of intermittent centrally located abdominal pain and nausea Pt Subjective Complaint: fever Onset (ago): day(s) Context: recent procedure/surgery Associated symptoms: Reports: abdominal pain, nausea Worsens with: time of day Treatments prior to arrival fever: antibiotics (Recently completed a course of amoxicillin upon discharge) - Related Data Home Medications Medication Instructions Recorded Confirmed Bisoprolol/HCTZ 2.5/6.25 [Ziac 1 tab PO DAILY 02/20/16 08/11/16 2.5/6.25] Cyanocobalamin (Vitamin B-12) 1,000 mcg SL DAILY 02/20/16 08/11/16 [Vitamin B-12] Esomeprazole Magnesium [Nexium] 40 mg PO DAILY PRN 02/20/16 08/11/16 LORazepam [Lorazepam] 1 mg PO TID PRN 02/20/16 08/11/16 Cholecalciferol (D-3) [Vitamin D] 2,000 unit PO DAILY 08/11/16 08/11/16 Escitalopram [Lexapro] 20 mg PO DAILY 08/11/16 08/11/16 Levothyroxine [Synthroid] 25 mcg PO 0630 08/11/16 08/11/16 Zolpidem Tartrate [Ambien Cr] 12.5 mg PO HS 08/11/16 08/11/16 Previous Rx's Medication Instructions Recorded Amoxicillin/Clavulanate [Augmentin] 875 mg PO BIDWM #14 tablet 08/15/16 Ondansetron ODT [Zofran ODT] 4 mg SL Q6HR PRN #30 tab.rapdis 08/15/16 OxyCODONE/APAP 5/325 [Percocet 1 each PO Q4HR PRN #30 tablet 08/15/16 5/325 MG] Allergies Allergy/AdvReac Type Severity Reaction Status Date / Time No Known Allergies Allergy Verified 08/11/16 11:18 All systems ED: reviewed and negative except as stated. Constitutional: Reports: fever Eyes: Reports: as per HPI ENT ED: Reports: as per HPI Cardiovascular: Reports: as per HPI Respiratory: Reports: as per HPI Gastrointestinal: Reports: abdominal pain, nausea Genitourinary: Reports: as per HPI Musculoskeletal: Reports: as per HPI Integumentary: Reports: as per HPI Neurological: Reports: as per HPI Psychiatric: Reports: as per HPI Endocrine: Reports: as per HPI Hematological/Lymphatic: Reports: as per HPI Allergic/Immunologic: Reports: as per HPI Fever PMH - Past Medical History Medical history: Reports: arthritis, asthma, GERD, hypertension, thyroid disease , other Surgical history: Reports: appendectomy, orthopedic, other, other Psychiatric history: Reports: anxiety 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 - Social History Smoking Status: Never smoker Alcohol use: Reports: none Drug use: Reports: none Physical Exam - General Limitations: no limitations General appearance: alert, in no apparent distress, anxious - Head Head exam: atraumatic - Eye Eye exam: Present: normal appearance - ENT ENT exam: normal exam - Neck Neck exam: Present: normal inspection, full ROM - Chest Chest inspection: Present: normal inspection, symmetric chest wall rise - Respiratory Respiratory exam: Present: normal lung sounds bilaterally - Cardiovascular Cardiovascular exam: Present: regular rate, normal rhythm, normal heart sounds - Abdominal Exam Abdominal exam: Present: soft, tenderness (Mild generalized), distention, hypoactive bowel sounds (Laparoscopic incisions intact without drainage). Absent: guarding, rebound - Rectal Exam Rectal exam: Present: deferred - Extremities Exam Extremities exam: Present: normal inspection - Neurological Exam Neurological exam: Present: alert, oriented X3, CN II-XII intact - Psychiatric Psychiatric exam: Present: anxious - Skin Skin exam: Present: warm, dry, other (Tactile fever) Course Course Narrative: Medical records reviewed. Patient recently underwent a colonoscopy with resultant bowel perforation that failed nonoperative conservative management. She recently underwent laparoscopic repair She presents today with intermittent abdominal pain as well as fevers over the past several days. I will check a chest x-ray, urinalysis, blood work. I will perform a CT scan of her abdomen and pelvis with IV and oral contrast. Analgesics offered Plan to discuss results of test with the patient's surgeon upon completion of studies - Reevaluation(s) Reevaluation #1: CT findings discussed with patient and spouse. 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 He accepts admission and recommends no antibiotic therapy at this time Vital Signs Temperature 100.3 F H 08/26/16 21:51 Pulse Rate 99 08/26/16 21:51 Respiratory Rate 18 08/26/16 21:51 Blood Pressure 147/82 08/26/16 21:51 O2 Sat by Pulse Oximetry 96 08/26/16 21:51 Temperature 100.3 F H 08/26/16 21:51 Pulse Rate 86 08/26/16 23:12 Respiratory Rate 16 08/26/16 23:12 Blood Pressure 128/68 08/26/16 23:12 O2 Sat by Pulse Oximetry 98 08/26/16 23:12 Oxygen Delivery Oxygen Delivery Room Air Fever - Medical Records Medical records reviewed: Yes I reviewed the patient's medical records. - Lab Data Lab results reviewed: Yes I reviewed the patient's lab results. Result diagrams: 08/26/16 22:29 08/26/16 22:29 Lab Results 08/26/16 08/26/16 08/26/16 Range/Units 22:12 22:29 22:29 WBC 13.0 H (4.3-11.1) K/mcL RBC 4.38 (3.82-4.97) M/mcL Hgb 11.8 (11.5-15.4) g/dL Hct 37.5 (35.3-44.9) % MCV 85.6 (83.0-100.0) fL MCH 26.9 L (28.0-33.3) pg MCHC 31.5 L (31.6-35.5) g/dL RDW 14.1 (11.5-14.5) % Plt Count 439 H (140-400) K/mcL MPV 11.5 (9.4-12.4) fL Immature Gran % 0.4 (0-4) % Seg Neutrophils % 67.0 % Lymphocytes % 19.4 % Monocytes % 11.7 % Eosinophils % 0.9 % Basophils % 0.6 % Neutrophils # 8.7 (1.6-8.9) K/mcL Lymphocytes # 2.5 (0.6-4.6) K/mcL Monocytes # 1.5 H (0.0-1.3) K/mcL Eosinophils # 0.1 (0.0-0.6) K/mcL Basophils # 0.1 (0.0-0.2) K/mcL Sodium 136 (136-145) mEq/L Potassium 4.3 (3.5-4.5) mEq/L Chloride 100 (98-109) mEq/L Carbon Dioxide 25 (19-29) mEq/L BUN 13 (7-20) mg/dL Creatinine 0.90 (0.57-1.11) mg/dL Est GFR ( Amer) > 60 (> 60) Est GFR (Non-Af Amer) > 60 (> 60) BUN/Creatinine Ratio 14 (6-26) Glucose 101 H (70-99) mg/dL Calculated Osmolality 282 (280-300) Lactic Acid (0.5-2.2) mmol/L Calcium 9.1 (8.6-10.8) mg/dL Total Bilirubin 0.6 (0.2-1.2) mg/dL AST 29 (5-34) Units/L ALT 23 (0-55) Units/L Alkaline Phosphatase 76 (38-126) Units/L Serum Total Protein 8.4 H (6.0-8.3) g/dL Albumin 3.3 L (3.5-5.0) g/dL Globulin 5.1 H (2.4-3.5) g/dL Albumin/Globulin Ratio 0.6 L (1.1-2.2) Urine Color Yellow (Yellow) Urine Clarity Cloudy A (Clear) Urine pH 7.0 (5.0-8.0) pH Units Ur Specific [place] 1.021 (1.010-1.025) Urine Protein 30 H (Neg-Trace) mg/dL Urine Glucose (UA) Normal (Normal) mg/dL Urine Ketones Negative (Negative) mg/dL Urine Blood Negative (Negative) Urine Nitrite Negative (Negative) Urine Bilirubin Negative (Negative) Urine Urobilinogen Normal (Normal) mg/dL Ur Leukocyte Esterase Negative (Negative) Urine Microscopic RBC 0-3 (0-3) per hpf Urine Microscopic WBC 0-3 (0-3) per hpf Ur Squamous Epith Cells Many H (None-Few) per lpf Urine Bacteria None Seen (None-Few) per hpf Hyaline Casts None Seen (None-Few) per lpf 08/26/16 Range/Units 22:29 WBC (4.3-11.1) K/mcL RBC (3.82-4.97) M/mcL Hgb (11.5-15.4) g/dL Hct (35.3-44.9) % MCV (83.0-100.0) fL MCH (28.0-33.3) pg MCHC (31.6-35.5) g/dL RDW (11.5-14.5) % Plt Count (140-400) K/mcL MPV (9.4-12.4) fL Immature Gran % (0-4) % Seg Neutrophils % % Lymphocytes % % Monocytes % % Eosinophils % % Basophils % % Neutrophils # (1.6-8.9) K/mcL Lymphocytes # (0.6-4.6) K/mcL Monocytes # (0.0-1.3) K/mcL Eosinophils # (0.0-0.6) K/mcL Basophils # (0.0-0.2) K/mcL Sodium (136-145) mEq/L Potassium (3.5-4.5) mEq/L Chloride (98-109) mEq/L Carbon Dioxide (19-29) mEq/L BUN (7-20) mg/dL Creatinine (0.57-1.11) mg/dL Est GFR ( Amer) (> 60) Est GFR (Non-Af Amer) (> 60) BUN/Creatinine Ratio (6-26) Glucose (70-99) mg/dL Calculated Osmolality (280-300) Lactic Acid 1.4 (0.5-2.2) mmol/L Calcium (8.6-10.8) mg/dL Total Bilirubin (0.2-1.2) mg/dL AST (5-34) Units/L ALT (0-55) Units/L Alkaline Phosphatase (38-126) Units/L Serum Total Protein (6.0-8.3) g/dL Albumin (3.5-5.0) g/dL Globulin (2.4-3.5) g/dL Albumin/Globulin Ratio (1.1-2.2) Urine Color (Yellow) Urine Clarity (Clear) Urine pH (5.0-8.0) pH Units Ur Specific [place] (1.010-1.025) Urine Protein (Neg-Trace) mg/dL Urine Glucose (UA) (Normal) mg/dL Urine Ketones (Negative) mg/dL Urine Blood (Negative) Urine Nitrite (Negative) Urine Bilirubin (Negative) Urine Urobilinogen (Normal) mg/dL Ur Leukocyte Esterase (Negative) Urine Microscopic RBC (0-3) per hpf Urine Microscopic WBC (0-3) per hpf Ur Squamous Epith Cells (None-Few) per lpf Urine Bacteria (None-Few) per hpf Hyaline Casts (None-Few) per lpf - Radiology Data Radiology results reviewed: Yes I reviewed the patient's radiology results.
[2016-08-26 22:25] LABS: Bilirubin,Urine Negative (Negative); Blood,Urine Negative (Negative); Clarity,Urine Cloudy (Clear); Color,Urine Yellow (Yellow); Glucose,Urine (UA) Normal (Normal); Ketones,Urine Negative (Negative); Leukocyte Esterase,Urine Negative (Negative); Nitrite,Urine Negative (Negative); Protein,Urine 30 mg/dL (Neg-Trace); Specific Gravity,Urine 1.021 (1.010-1.025); Urobilinogen,Urine Normal (Normal)
[2016-08-26 22:28] LABS: Bacteria,Urine None Seen per hpf (None-Few); Hyaline Casts,Urine None Seen per lpf (None-Few); RBC,Urine 0-3 per hpf (0-3); Squamous Epithelial Cell,Urine Many per lpf (None-Few); WBC,Urine 0-3 per hpf (0-3)
[2016-08-26 22:46] LABS: Basophils # 0.1 K/mcL (0.0-0.2); Basophils % 0.6 %; Eosinophils # 0.1 K/mcL (0.0-0.6); Eosinophils % 0.9 %; Hematocrit 37.5 % (35.3-44.9); Hemoglobin 11.8 g/dL (11.5-15.4); Immature Granulocytes % 0.4 % (0-4); Lymphocytes # 2.5 K/mcL (0.6-4.6); Lymphocytes % 19.4 %; Mean Corpuscular HGB Conc 31.5 g/dL (31.6-35.5); Mean Corpuscular Hemoglobin 26.9 pg (28.0-33.3); Mean Corpuscular Volume 85.6 fL (83.0-100.0); Mean Platelet Volume 11.5 fL (9.4-12.4); Monocytes # 1.5 K/mcL (0.0-1.3); Monocytes % 11.7 %; Neutrophils # 8.7 K/mcL (1.6-8.9); Platelet Count 439 K/mcL (140-400); Red Blood Count 4.38 M/mcL (3.82-4.97); Red Cell Distribution Width 14.1 % (11.5-14.5)
[2016-08-26 22:59] LABS: Alanine Aminotransferase 23 Units/L (0-55); Albumin 3.3 g/dL (3.5-5.0); Albumin/Globulin Ratio 0.6 (1.1-2.2); Alkaline Phosphatase 76 Units/L (38-126); Aspartate Amino Transferase 29 Units/L (5-34); BUN/Creatinine Ratio 14 (6-26); Bilirubin,Total 0.6 mg/dL (0.2-1.2); Blood Urea Nitrogen 13 mg/dL (7-20); Calcium 9.1 mg/dL (8.6-10.8); Carbon Dioxide 25 mEq/L (19-29); Chloride 100 mEq/L (98-109); Globulin 5.1 g/dL (2.4-3.5); Glucose 101 mg/dL (70-99); Osmolality,Calculated 282 (280-300); Potassium 4.3 mEq/L (3.5-4.5); Sodium 136 mEq/L (136-145); Total Protein 8.4 g/dL (6.0-8.3); eGFR For African Americans > 60 (> 60); eGFR For Non-African Americans > 60 (> 60)
[2016-08-27] MEDS ORDERED: *HR* OxyCODONE/APAP 10/325 TABLET PO PRN (00:43)
[2016-08-27] MEDS: 0.9 % Sodium Chloride 1,000 ML IVC SCH (01:28)
[2016-08-27] MEDS: Piperacillin/Tazobactam 3.375 GM in D5% in Water (Mini-Bag+) 100 ML IVPB SCH ×3 (05:39→19:48)
[2016-08-27 05:59] LABS: Hematocrit 35.8 % (35.3-44.9); Hemoglobin 11.2 g/dL (11.5-15.4); Mean Corpuscular HGB Conc 31.3 g/dL (31.6-35.5); Mean Corpuscular Hemoglobin 25.8 pg (28.0-33.3); Mean Corpuscular Volume 82.5 fL (83.0-100.0); Mean Platelet Volume 11.9 fL (9.4-12.4); Platelet Count 366 K/mcL (140-400); Red Blood Count 4.34 M/mcL (3.82-4.97); Red Cell Distribution Width 14.1 % (11.5-14.5)
[2016-08-27] MEDS ORDERED: *HR* LORazepam 1 MG TABLET PO PRN (12:19)
[2016-08-27] MEDS ORDERED: Ondansetron 4 MG/2 ML VIAL IVP PRN (12:20)
[2016-08-27] MEDS ORDERED: Naloxone 0.4 MG/ML INJ IVP PRN (12:20)
--- NOTE | 2016-08-27 12:35 | General Surg History&Physical ---
Date of Encounter: 08/27/16 Time of Encounter: 12:00 Assessment and Plan (1) Fever Current Visit: Yes Status: Acute The assessment and plan as outlined above was discussed with the patient and/or family members who expressed understanding and agreement. All questions were answered. Unknown etiology Reviewed CT with Dr. Abbott- no abscess noted, expected inflammatory changes from recent surgery Broad spectrum antibiotic therapy- Zosyn Supportive care Continue to monitor Regular diet Resume home medications Qualifiers: Fever type: unspecified Qualified Code(s): R50.9 - Fever, unspecified (2) Anxiety Current Visit: Yes Status: Chronic The assessment and plan as outlined above was discussed with the patient and/or family members who expressed understanding and agreement. All questions were answered. Resume prn ativan (home regimen) (3) Hypothyroidism Current Visit: No Status: Chronic The assessment and plan as outlined above was discussed with the patient and/or family members who expressed understanding and agreement. All questions were answered. Resume home dose of levothyroxine Qualifiers: Hypothyroidism type: unspecified Qualified Code(s): E03.9 - Hypothyroidism , unspecified (4) Liver lesion, right lobe Current Visit: Yes Status: Acute The assessment and plan as outlined above was discussed with the patient and/or family members who expressed understanding and agreement. All questions were answered. Patient will need further work-up which may be complete as outpatient and followed up per PCP (5) DVT prophylaxis Current Visit: No Status: Acute The assessment and plan as outlined above was discussed with the patient and/or family members who expressed understanding and agreement. All questions were answered. Heparin 5,000 units SQ twice daily for DVT prophylaxis History of Present Illness Chief complaint: Fever of 103 HPI: Ms. Marcus is a 61 year old female who is well known to the surgery practice. She is recently s/p a colonoscopy on 08/11/16 in which she had a perforation of her colon. She is s/p Robotic closure of a colotomy on 08/13/[address] Abbott and was discharged on 08/15/16. She was seen in the surgery office yesterday and had her surgical drain discontinued. She states that after returning home, she did have some abdominal cramping which was followed by an episode of diarrhea. Denies any melena or hematochezia. She states that she began to have chills and was shaking uncontrollably last night. She checked her temperature and notes that it was 103 degrees. She reported to the ED for evaluation. Denies any nausea/vomiting. She has a normal appetite. Denies any difficulty with urination of dysuria. Denies any shortness of breath of chest pain. Admit to having a yeast infection. She was admitted to the surgery service for further work-up and observation. Past Med Surg Social Fam HX - Past Medical History Source: patient, old records reviewed Medical history: arthritis, asthma, GERD, hypertension, thyroid disease, other Psychiatric history: anxiety - Past Surgical History Surgical History: appendectomy, orthopedic, other (Back surgery (ruptured discs removed X 2 and plate placed); Right CTS; Right hand surgery (middle and trigger finger)), other (Colonoscopy 08/11/16; Robotic assisted repair of colotomy 08/13/16; Tubal ligation) - Social History Smoking Status: Never smoker Smokeless Tobacco Status: No Alcohol use: none Drug use: none - Family History Brother Living Status: Still Living Hx Family Cardiac Disorders: Yes (CHF) Hx Family Respiratory Disorders: Yes (COPD) Hx Family Cancer: Yes (prostate) Hx Family GI Disorders: Yes (GERD) Hx Family Endocrine Disorder: Yes (diabetes mellitus) Hx Family Neuromuscular Disorders: No Hx Family Neurologic Disorders: No Hx Family HEENT Disorders: No Hx Family Autoimmune Disorders: No Mother Living Status: Hx Family Cardiac Disorders: Yes Hx Family Endocrine Disorder: Yes (diabetes mellitus) Father Living Status: Hx Family Neurologic Disorders: Yes (CVA) Sister Living Status: Hx Family Cardiac Disorders: Yes (HTN, heart disease) Hx Family Cancer: Yes (uterine cancer) Hx Family Endocrine Disorder: Yes (diabetes mellitus) Hx Family Neurologic Disorders: Yes (CVA) Medications and Allergies Bisoprolol/HCTZ 2.5/6.25 [Ziac 2.5/6.25] 1 tab PO DAILY 02/20/16 [History] Cyanocobalamin (Vitamin B-12) [Vitamin B-12] 1,000 mcg SL DAILY 02/20/16 [ History] LORazepam [Lorazepam] 1 mg PO TID PRN 02/20/16 [History] Cholecalciferol (D-3) [Vitamin D] 2,000 unit PO DAILY 08/11/16 [History] Escitalopram [Lexapro] 20 mg PO DAILY 08/11/16 [History] Levothyroxine [Synthroid] 25 mcg PO DAILY 08/11/16 [History] Zolpidem Tartrate [Ambien Cr] 12.5 mg PO HS 08/11/16 [History] Ondansetron ODT [Zofran ODT] 4 mg SL Q6HR PRN #30 tab.rapdis 08/15/16 [Rx] Albuterol Sulfate [Proair Hfa] 2 puff IH Q4H PRN 08/27/16 [History] OxyCODONE/APAP 5/325 [Percocet 5/325 MG] 1 tab PO Q4HR PRN 08/27/16 [History] Allergies No Known Allergies Allergy (Verified 08/11/16 11:18) Review of Systems All systems PM: reviewed and no additional remarkable complaints except as stated (in the HPI) All systems PM: A 10-system review of systems was performed and is negative for pertinent findings except as documented above in the HPI. General Surgery Exam Initial Vital Signs Temp Pulse Resp BP Pulse Ox 100.3 F H 99 18 147/82 96 08/26/16 21:51 08/26/16 21:51 08/26/16 21:51 08/26/16 21:51 08/26/16 21:51 - General physical appearance well developed, well nourished, no distress, no pain - Eyes normal ocular movement - ENT normal mucosa, atraumatic, normocephalic - Neck trachea midline - Respiratory normal respiratory effort, clear to auscultation - Cardiovascular Cardiovascular exam: Present: RRR - Abdomen Abdomen general surgery: Present: bowel sounds present, soft, non tender - Incision Incision: Present: clean and dry, intact - Integumentary Integumentary general surgery: Present: warm and dry - Neurologic Present: CN 2-12 grossly intact - Musculoskeletal Present: normal gait, normal posture - Psychiatric Psychiatric general surgery: Present: appropriate, oriented to person, oriented to place, oriented to time, speech is normal, memory intact Results - Labs 08/27/16 05:34 08/26/16 22:29 Abnormal lab results WBC 12.6 K/mcL (4.3-11.1) H 08/27/16 05:34 Hgb 11.2 g/dL (11.5-15.4) L 08/27/16 05:34 MCV 82.5 fL (83.0-100.0) L 08/27/16 05:34 MCH 25.8 pg (28.0-33.3) L 08/27/16 05:34 MCHC 31.3 g/dL (31.6-35.5) L 08/27/16 05:34 Monocytes # 1.5 K/mcL (0.0-1.3) H 08/26/16 22:29 Glucose 101 mg/dL (70-99) H 08/26/16 22:29 POC Glucose 110 (58-89) H 08/27/16 11:25 Serum Total Protein 8.4 g/dL (6.0-8.3) H 08/26/16 22:29 Albumin 3.3 g/dL (3.5-5.0) L 08/26/16 22:29 Globulin 5.1 g/dL (2.4-3.5) H 08/26/16 22:29 Albumin/Globulin Ratio 0.6 (1.1-2.2) L 08/26/16 22:29 Urine Clarity Cloudy (Clear) A 08/26/16 22:12 Urine Protein 30 mg/dL (Neg-Trace) H 08/26/16 22:12 Ur Squamous Epith Cells Many per lpf (None-Few) H 08/26/16 22:12 All other labs normal. - Imaging CT scan - abdomen: report reviewed CT scan - pelvis: report reviewed Additional studies: Chest X-Ray 08/26/16 22:00 IMPRESSION: No acute findings in the chest. Resolution of pneumoperitoneum. D/ / Vikash Crews MD / Vikash Crews MD Interpreting Provider: Vikash Crews MD Abdomen/Pelvis CT 08/26/16 23:30 IMPRESSION: 1. Ill-defined focus of soft tissue, fluid and air at site of previous perforation adjacent to the sigmoid colon. Pattern evidence of a small abscess. 2. Resolution of pneumoperitoneum from prior imaging with no air at previous perforation site suggesting resolution of prior perforation. 3. Inflammation in the right pelvis contributes to mild proximal hydroureteronephrosis. 4. Indeterminate low-density lesion in the right hepatic lobe. Outpatient follow-up may be considered with multiphase CT or MRI for further evaluation. D/ / Vikash Crews MD / Vikash Crews MD Interpreting Provider: Vikash Crews MD - Attending Attestation I examined this patient and my medical decision-making was reviewed with the NEWS VIDEOTAPE EDITOR/PA/Advanced Practice Nurse/Resident Physician. I agree with the documented findings, disposition and treatment plan as described except to the extent set forth below.
[2016-08-27] MEDS: Fluconazole 100 MG TABLET PO SCH (17:52)
[2016-08-27] MEDS: *HR* Heparin 5,000 UNIT/ML VIAL SQ SCH (17:55)
[2016-08-28] MEDS: 0.9 % Sodium Chloride 1,000 ML IVC SCH (01:08)
[2016-08-28] MEDS: Piperacillin/Tazobactam 3.375 GM in D5% in Water (Mini-Bag+) 100 ML IVPB SCH ×2 (05:46→14:12)
[2016-08-28] MEDS: *HR* Heparin 5,000 UNIT/ML VIAL SQ SCH (05:49)
[2016-08-28 05:58] LABS: Basophils # 0.1 K/mcL (0.0-0.2); Eosinophils # 0.3 K/mcL (0.0-0.6); Hematocrit 35.5 % (35.3-44.9); Immature Granulocytes % 0.3 % (0-4); Lymphocytes # 2.2 K/mcL (0.6-4.6); Lymphocytes % 31.4 %; Mean Platelet Volume 11.8 fL (9.4-12.4); Monocytes % 14.1 %; Neutrophils # 3.5 K/mcL (1.6-8.9); Platelet Count 405 K/mcL (140-400); Red Blood Count 4.08 M/mcL (3.82-4.97); Segmented Neutrophils % 49.2 %
[2016-08-28] MEDS ORDERED: Levothyroxine 25 MCG TABLET PO SCH (06:30)
[2016-08-28] MEDS: Fluconazole 100 MG TABLET PO SCH (07:45)
[2016-08-28 11:02] VITALS: BP 109/67
--- NOTE | 2016-08-28 14:26 | Discharge Summary ---
Date of Encounter: 08/28/16 Time of Encounter: 14:00 - Discharge Diagnosis (1) Fever Priority: Primary Status: Resolved Qualifiers: Fever type: unspecified Qualified Code(s): R50.9 - Fever, unspecified (2) Anxiety Priority: Secondary Status: Chronic (3) Hypothyroidism Priority: Secondary Status: Chronic Qualifiers: Hypothyroidism type: unspecified Qualified Code(s): E03.9 - Hypothyroidism , unspecified (4) Liver lesion, right lobe Priority: Secondary Status: Acute (5) DVT prophylaxis Priority: Secondary Status: Acute - Discharge Medications Prescriptions: Amoxicillin/Clavulanate [Augmentin] 875 mg PO BIDWM #14 tablet Home Medications: Bisoprolol/HCTZ 2.5/6.25 [Ziac 2.5/6.25] 1 tab PO DAILY 02/20/16 [History] Cyanocobalamin (Vitamin B-12) [Vitamin B-12] 1,000 mcg SL DAILY 02/20/16 [ History] LORazepam [Lorazepam] 1 mg PO TID PRN 02/20/16 [History] Cholecalciferol (D-3) [Vitamin D] 2,000 unit PO DAILY 08/11/16 [History] Escitalopram [Lexapro] 20 mg PO DAILY 08/11/16 [History] Levothyroxine [Synthroid] 25 mcg PO DAILY 08/11/16 [History] Zolpidem Tartrate [Ambien Cr] 12.5 mg PO HS 08/11/16 [History] Ondansetron ODT [Zofran ODT] 4 mg SL Q6HR PRN #30 tab.rapdis 08/15/16 [Rx] Albuterol Sulfate [Proair Hfa] 2 puff IH Q4H PRN 08/27/16 [History] OxyCODONE/APAP 5/325 [Percocet 5/325 MG] 1 tab PO Q4HR PRN 08/27/16 [History] Amoxicillin/Clavulanate [Augmentin] 875 mg PO BIDWM #14 tablet 08/28/16 [Rx] Allergies/Adverse Reactions: Allergies No Known Allergies Allergy (Verified 08/11/16 11:18) General Surgery Exam Initial Vital Signs Temp Pulse Resp BP Pulse Ox 100.3 F H 99 18 147/82 96 08/26/16 21:51 08/26/16 21:51 08/26/16 21:51 08/26/16 21:51 08/26/16 21:51 - General physical appearance well developed, well nourished, no distress - Eyes normal ocular movement - ENT normal mucosa, atraumatic, normocephalic - Neck trachea midline - Respiratory normal expansion, normal respiratory effort, clear to auscultation - Cardiovascular Cardiovascular exam: Present: RRR, 15, 16 - Abdomen Abdomen general surgery: Present: bowel sounds present, soft, non tender - Incision Incision: Present: clean and dry, intact - Integumentary Integumentary general surgery: Present: warm and dry - Neurologic Present: CN 2-12 grossly intact, normal coordination, normal sensation - Musculoskeletal Present: normal gait, normal posture - Psychiatric Psychiatric general surgery: Present: appropriate, oriented to person, oriented to place, oriented to time, speech is normal, memory intact Date of admission: 08/27/16 12:09 Primary care physician: PCP NO Discharging clinician: Fernando Regalado) Anticipated date of discharge: 08/28/16 - Patient Status Disposition: Home, Self-Care Condition: Good Functional capacity at discharge: independent ambulation Overall status at discharge: patient is progressing back to baseline - Discharge Instructions Follow Up With: Fernando Abbott DO [Partnered Physician] - 09/09/16 1:25 pm Norm Padilla DO [Resident] - 09/08/16 2:30 pm - Diet and Activity Activity: increase activity as tolerated Diet: advance to your usual diet - Hospital Course Hospital course: Ms. Marcus is a 61 year old female presented to the hospital with complaint of fever over 103 degrees. She is recently s/p robotic assisted repair of colotomy. She was started on broad spectrum antibiotics. Her symptoms of abdominal discomfort resolved within 12 hours of being in the hospital. She has not had a fever in the past 24 hours. Her vital signs are stable. She is tolerating a diet without nausea/vomiting. She is voiding and ambulating without difficulty. She has had a normal bowel movement. Will begin discharge planning and plan for outpatient follow-up in the next 10-14 days. - Time Spent with Patient Total time spent providing and/or coordinating discharge services: Less than 30 minutes Labs on day of discharge: Labs from last 24 hours 08/28/16 04:30 WBC 7.0 RBC 4.08 Hgb 11.0 L Hct 35.5 MCV 87.0 MCH 27.0 L MCHC 31.0 L RDW 14.0 Plt Count 405 H MPV 11.8 Immature Gran % 0.3 Seg Neutrophils % 49.2 Lymphocytes % 31.4 Monocytes % 14.1 Eosinophils % 4.0 Basophils % 1.0 Neutrophils # 3.5 Lymphocytes # 2.2 Monocytes # 1.0 Eosinophils # 0.3 Basophils # 0.1
== END 2016-08-28 17:25 | disposition home or self-care (01) | DRG 722 ==
LOC: EMEROO 21:46 → 3ANU 21:46
PROVIDERS: ADMIT Surgery; ATTEND Surgery